=== PATIENT | female | born 1990 | race African-American/Black ===

== ENCOUNTER 2019-09-22 10:30 | Emergency (ER) | payer OTHER ==
[~2019-09-22] VITALS: Ht 175.3 cm; Wt 97.5 kg
[2019-09-22 10:34] VITALS: BP 123/77
--- NOTE | 2019-09-22 10:40 | NUR ---
Patient ambulated to bed 1. RN evaluating patient at bedside.
--- NOTE | 2019-09-22 11:30 | NUR ---
C/O RLQ PAIN 02/24 ACCOMPANIED BY NAUSEA X4 DAYS. PT DENIES VOMITING/DIARRHEA/FEVERS. LBM 09/21/2019. BOWEL SOUNDS ACTIVE IN ALL 4 QUADRANTS. TENDERNESS TO RLQ. LMP 08/29/19. PT ALERT AND AWAKE, AMBULATORY. VS STABLE. HX: NONE
--- NOTE | 2019-09-22 11:48 | NUR ---
LAB AT BEDSIDE
--- NOTE | 2019-09-22 11:52 | NUR ---
BOLUS RUNNING WIDE OPEN AND TORADOL ADMINISTERED IVP
[2019-09-22] MEDS: NACL 0.9% 1,000 ML IV ONE (11:53)
[2019-09-22] MEDS: KETOROLAC 30 MG/ML VIAL IVP ONE (11:53)
[2019-09-22 11:56] LABS: BASOPHILS % (AUTO) 0.7 % (0.0-2.0); EOSINOPHILS # (AUTO) 0.1 K/uL (0-0.4); EOSINOPHILS % (AUTO) 1.5 % (0.0-4.0); HEMATOCRIT 36.2 % (36-48); HEMOGLOBIN 11.7 g/dL (12.0-16.0); LYMPHOCYTES # (AUTO) 1.4 K/uL (2.5-16.5); LYMPHOCYTES % (AUTO) 40.1 % (20.5-51.1); MEAN CORPUSCULAR HEMOGLOBIN 29 pg (27-31); MEAN CORPUSCULAR HGB CONC 32 g/dL (33-37); MONOCYTES # (AUTO) 0.4 K/uL (0.8-1.0); MONOCYTES % (AUTO) 10.7 % (1.7-9.3); NEUTROPHILS # (AUTO) 1.7 K/uL (1.8-7.7); PLATELET COUNT (AUTO) 246 K/uL (140-450); RED BLOOD CELL COUNT(AUTO) 4.02 MIL/uL (4.20-5.40); RED CELL DISTRIBUTION WIDTH 14.1 % (11.6-13.7); WHITE BLOOD COUNT (AUTO) 3.5 K/uL (4.8-10.8)
[2019-09-22 12:13] LABS: ALBUMIN 3.4 g/dL (3.4-5.0); ANION GAP 13.6 (8-16); CARBON DIOXIDE 27.3 mmol/L (21-32); CREATININE 0.9 mg/dL (0.6-1.3); POTASSIUM 3.9 mmol/L (3.5-5.1); TOTAL BILIRUBIN 0.6 mg/dL (0.0-1.0)
--- NOTE | 2019-09-22 12:20 | NUR ---
Poppy garcia in [facility] - 09/22/19 at 1225 by [email or web address] Patient taken to CT scan via wheelchair by tech.
[2019-09-22 12:21] LABS: APPEARANCE,URINE HAZY (CLEAR); BILIRUBIN,URINE 1+ (NEGATIVE); BLOOD, URINE NEGATIVE (NEGATIVE); COLOR,URINE YELLOW (YELLOW); LEUKOCYTE ESTERASE ,URINE NEGATIVE (NEGATIVE); NITRITE, URINE NEGATIVE (NEGATIVE); UGLUCOSE NEGATIVE (NEGATIVE)
--- NOTE | 2019-09-22 12:25 | NUR ---
Patient transferred to bed 4 for further care.
--- NOTE | 2019-09-22 12:25 | NUR ---
PT REFUSING TO GO TO CT SCAN UNLESS HCG IS PERFORMED THROUGH BLOOD
--- NOTE | 2019-09-22 12:26 | NUR ---
NADR, PAIN 07/25
--- NOTE | 2019-09-22 12:26 | NUR ---
PT STATES SHE HAS BEEN TRYING TO GET AND HAS HAD A PAST EPTOPIC
--- NOTE | 2019-09-22 14:50 | NUR ---
VS STABLE. PT ON PHONE IN BED. US COMPLETE. PENDING CT AT THIS TIME. PAIN 06/27.
--- NOTE | 2019-09-22 15:11 | NUR ---
PT AT CT
[2019-09-22 16:04] VITALS: BP 114/67
--- NOTE | 2019-09-22 16:04 | NUR ---
Patient discharged with v/s stable. Written and verbal after care instructions given and explained REGARDING UTERINE FIBRIODS. Patient alert, oriented and verbalized understanding of instructions. Ambulatory with steady gait. All questions addressed prior to discharge. ID band removed. Patient advised to follow up with PMD. Rx of NAPROSYN AND ZOFRAN given. Patient educated on indication of medication including possible reaction and side effects. Opportunity to ask questions provided and answered. PT GIVEN COPY OF US RESULTS AND INSTRUCTED TO FOLLOW UP WITH PCP OR GRINDER OPERATOR
== END 2019-09-22 16:04 | disposition home or self-care (01) ==
LOC: MED 10:30
DX: D25.9 Leiomyoma of uterus, unspecified (principal)
CPT/HCPCS: 36415; 74176; 76830; 80053; 81003; 81025; 82150; 83690; 84703; 85025; 99285; J1885; J7030; Q0092